=== PATIENT | female | born 1960 | race Two or more races ===

== ENCOUNTER 2025-04-15 06:12 | Emergency (ER) | payer OTHER, MEDICAID ==
[~2025-04-15] VITALS: Ht 162.6 cm; Wt 68.0 kg
[2025-04-15] MEDS: IV NS 0.9% 500 ML BAG IV ONE (06:57)
[2025-04-15 07:08] LABS: PLATELET COUNT (AUTO) 295 K/uL (150-450); RED BLOOD CELL COUNT(AUTO) 3.95 MIL/uL (4.0-5.2); RED CELL DISTRIBUTION WIDTH 13.5 % (11.5-15.0); WHITE BLOOD COUNT (AUTO) 5.2 K/uL (4.3-11.0)
[2025-04-15 07:16] LABS: CALCIUM, SERUM 8.2 mg/dL (8.5-10.1); CREATININE 0.6 mg/dL (0.6-1.3); SODIUM SERUM 147 mmol/L (136-145); UREA NITROGEN, BLOOD 12 mg/dL (7-18)
[2025-04-15 07:20] LABS: ALCOHOL, BLOOD 70 mg/dL (0-10)
[2025-04-15 08:17] LABS: APPEARANCE,URINE CLEAR (CLEAR); BLOOD, URINE 2+ Ery/uL (NEGATIVE); LEUKOCYTE ESTERASE ,URINE NEGATIVE (NEGATIVE); NITRITE, URINE NEGATIVE (NEGATIVE); UGLUCOSE NEGATIVE (NEGATIVE)
[2025-04-15 08:23] LABS: ADD URINE CULTURE NO
[2025-04-15 08:26] LABS: AMPHETAMINE, URINE NEGATIVE (NEGATIVE); BARBITURATE, URINE NEGATIVE (NEGATIVE); BENZODIAZEPINE, URINE NEGATIVE (NEGATIVE); COCCAINE, URINE NEGATIVE (NEGATIVE); OPIATE, URINE NEGATIVE (NEGATIVE)
[2025-04-15 08:30] LABS: CANNABINOID, URINE POSITIVE (NEGATIVE)
[2025-04-15] MEDS ORDERED: ZOLPIDEM TARTRATE 5 MG TABLET PO PRN (11:30)
[2025-04-15] MEDS ORDERED: ONDANSETRON HCL/PF 4 MG/2 ML VIAL IVP PRN (11:30)
[2025-04-15] MEDS ORDERED: ENOXAPARIN SODIUM 40 MG/0.4 ML DISP.SYRIN SQ SCH (11:30)
[2025-04-15] MEDS ORDERED: MAG HYDROX/AL HYDROX/SIMETH 30 ML UDC PO PRN (11:30)
[2025-04-15] MEDS ORDERED: ACETAMINOPHEN 325 MG TABLET PO PRN (11:30)
[2025-04-15] MEDS ORDERED: IV 1/2NS 1000 ML 1,000 ML IV PRN (11:30)
[2025-04-15] MEDS ORDERED: MAGNESIUM HYDROXIDE 30 ML UDC PO PRN (11:30)
[2025-04-15] MEDS ORDERED: Z GUARD REMEDY 4 OZ OINT TP PRN (11:30)
[2025-04-15 12:14] VITALS: BP 133/68; TEMP 98.4; O2SAT 98
[2025-04-16] MEDS ORDERED: PANTOPRAZOLE 40 MG TABLET.DR PO SCH (07:30)
== END 2025-04-15 12:14 | disposition short-term general hospital (02) ==
LOC: ER 06:13
DX: G93.40 Encephalopathy, unspecified (principal); F10.129 Alcohol abuse with intoxication, unspecified; R07.89 Other chest pain; Z79.899 Other long term (current) drug therapy; Z91.83 Wandering in diseases classified elsewhere; Y90.9 Presence of alcohol in blood, level not specified
CPT/HCPCS: 99285; 93005; 71045; 70450; 85025; 80048; 81001; 36415; 84484 ×2; 80143; 80320; 80307; J7030; J7040; G0480